=== PATIENT | male | born 1990 | race Caucasian/White ===

== ENCOUNTER 2021-09-22 23:08 | Emergency (ER) | payer SELFPAY ==
[~2021-09-22] VITALS: Ht 180.3 cm; Wt 68.0 kg
--- NOTE | 2021-09-22 23:14 | NUR ---
ATUL EDMONDS TAKEN TO BED #9
[2021-09-22 23:15] VITALS: BP 131/69
[2021-09-22] MEDS ORDERED: IBUPROFEN 600 MG TAB PO ONE (23:35)
[2021-09-22] MEDS ORDERED: IBUP-1842 PO (23:38)
[2021-09-22] MEDS ORDERED: ACET-10509 PO (23:38)
--- NOTE | 2021-09-22 23:41 | NUR ---
PT MOVED TO BED 1
--- NOTE | 2021-09-22 23:53 | NUR ---
PT PROVIDED W URINAL PER PT REQEST TO VOID. PT DOES NOT WANT TO GET UP TO USE BATHROOM D/T BACK PAIN. PT MEDICATED FOR PAIN. PT ROTATED SELF IN BED TO USE URINAL.
--- NOTE | 2021-09-23 00:01 | NUR ---
PT CLEARED FOR DISCHARGE BY DR. CLAYTON. AT TIME OF DISCHARGE, PT WAS UNWILLING TO ALLOW THIS RN TO PROVIDE DISCHARGE INSTRUCTIONS AND PT DID NOT SIGN. PT LEFT FACILITY AT THIS TIME.
== END 2021-09-23 00:01 | disposition home or self-care (01) ==
LOC: MED 23:08
DX: S16.1XXA Strain of muscle, fascia and tendon at neck level, initial encounter (principal); W19.XXXA Unspecified fall, initial encounter; Y93.89 Activity, other specified; Y92.89 Other specified places as the place of occurrence of the external cause; Y99.8 Other external cause status
CPT/HCPCS: 99282